=== PATIENT | male | born 1950 | race Caucasian/White ===

== ENCOUNTER 2018-11-26 09:58 | Emergency (ER) | payer MEDICARE ==
--- NOTE | 2018-11-26 10:52 | ED ---
Neck Pain - HPI Summary HPI Summary: Pt is a 68 y/o M presenting to the ED for left neck and shoulder pain. Pt states that on the morning of 11/26/18, pt lost his balance while getting out of bed. Pt continued to feel unsteady on his feet and later fell 5 more times since the initial loss of balance. Pt describes the loss of balance as if he stood up to soon. Pt admits no change in symptoms when sitting down. Pt has had pain from the left forehead for 3 weeks. Pt also reports changes in vision that he describes as fuzzy that began at the same time as the neck pain. Pt has taken ibuprofen which has alleviated these symptoms, but reports the symptoms were not controlled on 11/26/18 after taking ibuprofen. Pt denies dizziness, tinnitus, changes in speech, or weakness in the bilateral LE or bilateral UE. Pt states his BP was 165/90 on 11/26/18, but his BP is typically 130/70. Pt does not take medication for HTN. Pt takes Crestor for hypercholesterolemia which was increased to 200 mg 3 days ago. Pt denies a PMHx of atrial fibrillation or other cardiac problems. Pt has an eye appointment next week. - History of Current Complaint Chief Complaint: EDNeckComplaint Stated Complaint: PAIN IN NECK AND SHOULDERS/LOSING BALANCE PER PT Time Seen by Provider: 11/26/18 10:40 Hx Obtained From: Patient Onset/Duration Of Injury/Symptoms: Weeks - 3 weeks Timing: Lasting Weeks - 3 weeks Onset/Duration: Sudden Onset, Started weeks ago - 3 weeks, Still Present Severity Initially: Moderate Severity Currently: Moderate Pain Intensity: 4 Pain Scale Used: 0-10 Numeric Location: Discrete At: - Pain near back of head that radiates to the left neck and shoulder Alleviating Factors: OTC Meds - Ibuprofen, Other: - No change when sitting Associated Signs & Symptoms: Negative: Weakness - Allergies/Home Medications Allergies/Adverse Reactions: Allergies Allergy/AdvReac Type Severity Reaction Status Date / Time No Known Allergies Allergy Verified 11/26/18 10:05 PMH/Surg Hx/FS Hx/Imm Hx Previously Healthy: Yes Endocrine/Hematology History: Denies: Hx Anticoagulant Therapy, Hx Diabetes Cardiovascular History: Reports: Hx Hypercholesterolemia Denies: Hx Atrial Fibrillation, Hx Hypertension, Hx Pacemaker/ICD, Other Cardiovascular Problems/Disorders Respiratory History: Denies: Hx Asthma History: Reports: Hx Benign Prostatic Hyperplasia - Takes proscar Sensory History: Reports: Hx Contacts or Glasses Denies: Hx Legally Blind, Hx Deafness, Hx Hearing Aid Opthamlomology History: Reports: Hx Contacts or Glasses Denies: Hx Legally Blind EENT History: Denies: Hx Deafness Psychiatric History: Denies: Hx Panic Disorder - Surgical History Surgical History: Yes Surgery Procedure, Year, and Place: L inguinal hernia repair 2010, [facility], 2 roxanne holes placed at age 10 r/t head injury,[facility] Infectious Disease History: No Infectious Disease History: Denies: Traveled Outside the [place] in Last 30 Days - Family History Known Family History: Negative: Hypertension, Diabetes - Social History Occupation: Retired Alcohol Use: None Hx Substance Use: No Substance Use Type: Reports: None Hx Tobacco Use: No Smoking Status (MU): Never Smoked Tobacco Review of Systems Positive: Other - Positive changes in vision described as "fuzzy" Positive: Other - Negative tinnitus Positive: Myalgia - Pain near back of head that radiates to the left neck and shoulder Neurological: Other - Positive loss of balance Negative: Weakness - Bilateral LE or bilateral UE, Slurred Speech All Other Systems Reviewed And Are Negative: Yes Physical Exam - Summary Physical Exam Summary: Appearance: The patient is well-nourished in no acute distress and in no acute pain. Skin: The skin is warm and dry, and skin color reflects adequate perfusion. HEENT: The head is normocephalic and atraumatic. The pupils are equal and reactive. The conjunctivae are clear and without drainage. Nares are patent and without drainage. Mouth reveals moist mucous membranes, and the throat is without erythema and exudate. The external ears are intact. The ear canals are patent and without drainage. The tympanic membranes are intact. Neck: The neck is supple with full range of motion and non-tender. There are no carotid bruits. There is no neck vein distension. Respiratory: Chest is non-tender. Lungs are clear to auscultation and breath sounds are symmetrical and equal. Cardiovascular: Heart is regular rate and rhythm. There is no murmur or rub auscultated. There is no peripheral edema and pulses are symmetrical and equal. Abdomen: The abdomen is soft and non-tender. There are normal bowel sounds heard in all four quadrants and there is no organomegaly palpated. Musculoskeletal: There is no back tenderness noted. Extremities are non-tender with full range of motion. There is good capillary refill. There is no peripheral edema or calf tenderness elicited. Neurological: Patient is alert and oriented to person, place and time. The patient has symmetrical motor strength in all four extremities. Cranial nerves are grossly intact. Deep tendon reflexes are symmetrical and equal in all four extremities. Psychiatric: The patient has an appropriate affect and does not exhibit any anxiety or depression. Triage Information Reviewed: Yes Vital Signs On Initial Exam: Initial Vitals Temp Pulse Resp BP Pulse Ox 98.3 F 53 18 159/92 96 11/26/18 09:59 11/26/18 09:59 11/26/18 09:59 11/26/18 09:59 11/26/18 09:59 Vital Signs Reviewed: Yes - Annalise Coma Scale Best Eye Response: 4 - Spontaneous Best Motor Response: 6 - Obeys Commands Best Verbal Response: 5 - Oriented Coma Scale Total: 15 Procedures - Sedation Patient Received Moderate/Deep Sedation with Procedure: No Diagnostics - Vital Signs Vital Signs Temp Pulse Resp BP Pulse Ox 11/26/18 09:59 98.3 F 53 18 159/92 96 - Laboratory Result Diagrams: 11/26/18 11:41 Lab Statement: Any lab studies that have been ordered have been reviewed, and results considered in the medical decision making process. - CT Brain CT CT Interpretation Completed By: Radiologist Summary of CT Findings: Brain CT IMPRESSION: 1. No acute intracranial abnormality by CT (MRI is more sensitive for acute infarct). 2. Mild chronic small vessel ischemic disease is likely. Reviewed by ED physician. Head CT CT Interpretation Completed By: Radiologist Summary of CT Findings: Head CTA IMPRESSION: 1. No acute occlusive disease, significant stenosis (by NASCET criteria) or aneurysm in. the head. 2. No acute occlusive disease or significant stenosis in the neck (by NASCET criteria) . 3. 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 4. Atherosclerotic disease as above. Reviewed by ED physician. Neck Course/Dx - Course Course Of Treatment: Mr. Lima presented with a 2 to three-week history of a left sided occipital pain accompanied by some intermittent blurred vision. This morning he had 5 episodes of losing his balance and suddenly falling over. I was concerned that he might have a vertebral dissection with an intermittent flap and a code urrutia was called. CTA was negative and Dr. Orellana consulted on him. He felt that the patient was having radicular issues from compression on the posterior columns. He recommended admission to the patient but the patient was unwilling. We tried to get an MRI scan but he apparently has a BB in his tongue. I spoke again with the neurologist and he recommended follow-up in the office. - Diagnoses Provider Diagnoses: Cervical radiculopathy During the Visit The Following Alert/Code Occurred: Code Taylor - Assessed the pt at 10:46 Called at 10:49 Discharge ED - Sign-Out/Discharge Documenting (check all that apply): Patient Departure - Discharge - Discharge Plan Condition: Stable Disposition: HOME Patient Education Materials: Cervical Radiculopathy (ED) Referrals: Malachi Marcial MD [Primary Care Provider] - Additional Instructions: Follow up with Dr. Orellana in 2-3 weeks. Return to the ED for any new or worsening symptoms. - Billing Disposition and Condition Condition: STABLE Disposition: Home - Attestation Statements Document Initiated by Scribe: Yes Documenting Scribe: Ester oJhnston Provider For Whom Scribe is Documenting (Include Credential): Geo Small MD Scribe Attestation: I, Ester Johnston, scribed for Geo Small MD on 11/26/18 at 1940. Scribe Documentation Reviewed: Yes Provider Attestation: The documentation as recorded by the Ester phillip accurately reflects the service I personally performed and the decisions made by me, Geo Small MD Status of Scribe Document: Viewed NIH Scale - NIH Scale Level of Consciousness: Alert/Keenly Responsive Ask Patient the Month and His/Her Age: Both Correct Ask Pt to Open/Close Eyes and Credentialing Specialist/Release Non-Paretic Hand: Both Correctly Best Gaze (Only Horizontal Eye Movement): Normal Visual Field Testing: No Visual Loss Facial Paresis-Pt to Smile & Close Eyes or Grimace Symmetry: Normal/Symmetrical Motor Function - Right Arm: No Drift-Holds 10 Seconds Motor Function - Left Arm: No Drift-Holds 10 Seconds Motor Function - Right Leg: No Drift-Holds 10 Seconds Motor Function - Left Leg: No Drift-Holds 10 Seconds Limb Ataxia-Must be out of Proportion to Weakness Present: Absent Sensory (Use Pinprick to Test Arms/Legs/Trunk/Face): Normal Best Language (Describe Picture, Name Items): No Aphasia Dysarthria (Read Several Words): Normal Extinction and Inattention: No Abnormality Total Score: 0 NIH Stroke Scale Comment: 0
[2018-11-26] MEDS ORDERED: Iodixanol* (CONTRAST) 320 MG/ML 100 ML SDV IV ONE (11:20)
[2018-11-26 12:00] LABS: ABS Basophils 0.1 10^3/ul (0-0.2); ABS Eosinophils 0.3 10^3/ul (0-0.6); ABS Lymphocytes 2.1 10^3/ul (1.0-4.8); ABS Monocytes 0.7 10^3/ul (0-0.8); ABS Neutrophils 4.1 10^3/ul (1.5-7.7); Eosinophil % 3.8 %; Hematocrit 40 % (42-52); Hemoglobin 13.2 g/dL (14.0-18.0); Lymphocyte % 28.7 %; Mean Corpuscular HGB Conc 33 g/dL (31-36); Mean Corpuscular Hemoglobin 31 pg (27-31); Mean Corpuscular Volume 94 fL (80-94); Mean Platelet Volume 7.2 fL (7.4-10.4); Platelet Count 274 10^3/uL (150-450); Red Blood Count 4.22 10^6 /uL (4.18-5.48); Red Cell Distribution Width 13 % (10-15); White Blood Count 7.2 10^3/uL (3.5-10.8)
--- NOTE | 2018-11-26 12:47 | CONS ---
NEUROLOGY CONSULTATION NOTE: DATE OF CONSULT: 11/26/18 CONSULTING PROVIDER: Dr. Geo Small. REASON FOR CONSULT: Neck pain. CHIEF COMPLAINT: Neck pain and stumbling when walking. HISTORY OF PRESENT ILLNESS: Mr. Cecil Lima is a 68-year-old man with history of benign prostatic hypertrophy and dyslipidemia, who presented to [facility] with a 3-week history of left-sided neck pain and woke up this morning with gait instability. The patient stated that the neck pain started 3 weeks ago after a long session of wood chopping. The pain is constant , relieved with NSAIDs, and is currently 3/10 in severity. The pain is described as sharp and ache-like, mostly localized to the lateral cervical region. The pain is exacerbated when looking towards the left. The patient was last known well at 10:30 last night. He woke up at 6:30 a.m. today and had trouble walking. He leaned forward and stumbled 5 times. Two of the times occurred before the lights were on in his bedroom. He denied any falls. He denied any new visual disturbance, although he has had some change in his vision over the last few weeks. He has scheduled an appointment with his clinical trials assistant recently. He has not had that appointment yet. The patient denied any focal weakness or paresthesias. He denied any slurred speech. He denied any swallowing impairment. The patient has a history of chronic low back pain. A CT head was obtained and showed no evidence of acute intracranial abnormality. There is a small calcified lesion in the right cerebellum with no surrounding edema. CTA head and neck showed no evidence of vertebral artery dissection, carotid dissection or stenosis, but there is mild spinal canal narrowing at C4-C5, C5- C6. There is multilevel neural foraminal narrowing on the left side. NIH Stroke Scale is 0. PAST MEDICAL HISTORY: Chronic low back pain, benign prostatic hypertrophy. MEDICATIONS: 1. Rosuvastatin 10 mg p.o. daily. 2. Finasteride 5 mg p.o. daily. 3. Aspirin 325 mg p.o. daily. 4. Tamsulosin 0.4 mg p.o. daily. ALLERGIES: No known drug allergies. FAMILY HISTORY: His father at age 39 due to a heart attack. There is no family history of stroke or seizures. SOCIAL HISTORY: The patient drinks 2 glasses of wine daily. 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 He denied any tobacco use. He denied any recreational drug use. He lives with his spouse. He chops wood for living. REVIEW OF SYSTEMS: A 12-point review of systems was obtained and otherwise negative except for what was mentioned in the HPI. Specifically, the patient denied any chest pain, shortness of breath, or palpitations. PHYSICAL EXAM: Vitals: Temperature of 98.3, pulse of 48, respiratory rate of 20, oxygen saturation of 99%, blood pressure of 154/84. General: Well- nourished, well- developed, well-built man, in no acute distress. Head: Atraumatic, normocephalic without any obvious abnormality. Spurling sign is positive on the left side with slight radiation of pain to the left shoulder. No nuchal rigidity. No carotid bruits. Cardiovascular: Regular rate and rhythm with normal S1, S2. Pulmonary: Clear to auscultation bilaterally with no wheezing or rhonchi. Extremities: Normal range of motion with no cyanosis. No hammertoes or high arches. Skin: No skin lesions or lacerations. Psych: His affect is broad and normal mood. Easy to establish rapport. Neurological Examination: Mental Status: Awake, alert, and oriented to person, place, time , and general circumstances. Speech and language including repetition, comprehension, fluency, and naming were assessed and found to be normal. Cranial Nerves: Pupils are equal, round, and reactive to light. Extraocular muscles are intact. There is normal sensation to the face bilaterally. No facial asymmetry. Tongue is symmetric and midline with no atrophy or fasciculation. Motor Examination: 5/5 strength in the upper and lower extremities. Normal tone throughout. Sensation is intact to light touch, pinprick and temperature sensation throughout except for reduced temperature sensation on the left arm. Romberg sign is negative. Vibration is reduced at the toes bilaterally, 10 seconds on the right and 11 seconds on the left. Proprioception is intact at the great toes. Coordination: Normal finger-to- nose and [id number] testing bilaterally. Gait: Wide based, normal stance. No ataxia. Reflexes 1+ in the biceps, triceps, and brachioradialis bilaterally ; 2+ at the knees, and 0 at the ankles bilaterally. Visual acuity testing, 20/ 40 on the right and 20/30 on the left. LABS, IMAGING, AND OTHER DIAGNOSTIC TESTING: We are still awaiting on the labs and the CTA was not read yet. ASSESSMENT AND RECOMMENDATIONS: Mr. Cecil Lima is a 68-year-old man with history of dyslipidemia and benign prostatic hypertrophy, who presented with: 1. New-onset gait instability in the setting of a 3-week history of left-sided neck pain. I suspect the patient has underlying cervical spondylosis with radiculopathy. I do not suspect he had a stroke. There is no evidence of vertebral artery dissection on the CTA, but we are awaiting for a final read. The fact that he has been chopping wood for the last few weeks may have exacerbated any underlying degenerative disk disease in the spine. Recommendations: I recommend obtaining an MRI of the cervical spine without contrast for further evaluation. The patient declined admission to the hospital and would prefer to proceed with further workup as an outpatient. Please check orthostatic vitals. I recommend NSAIDs and Tizanidine 2-4 mg a night for his neck pain. 2. Concern for underlying neuropathy. The patient had reduced vibration at the great toes today with absent reflexes at the ankles. The patient's underlying neuropathy could be related vitamin B1 deficiency or underlying prediabetes or diabetic state. I have ordered vitamin B1, B12, TSH, and hemoglobin A1c level to check for any reversible metabolic causes of neuropathy. This could also be contributing to his gait imbalance. 3. Nonspecific blurry vision of few weeks' duration. The patient will be followed up by Ophthalmology. He had no visual field cut or visual loss in the specific eye today. Further discharge planning will be deferred to our ER team. Please note that the patient did not have a stroke. He is not a candidate for IV tPA or mechanical thrombectomy due to the low suspicion for stroke. His gait abnormality seemed to be improving while he was in the ED. We will arrange for a follow-up appointment with neurology in 2-4 weeks. Addendum: the patient was unable to undergo an MRI due to some sort of metal in his tongue from a previous injury (according to the locate technician Nila). He would need to undergo further outpatient evaluation with an EMG/NCS and if he develops weakness or impairment in his bowel/bladder functions, then may need CT myelograms. For now, we will set up a follow-up appointment with [facility] neurology to see if his symptoms reoccur or he continues to have neck pain. [id number]/[facility] #: [id number] CARLOS A
[2018-11-26 12:57] LABS: TSH (Thyroid Stimulating Horm) 1.32 mcIU/mL (0.34-5.60)
[2018-11-26 14:28] VITALS: BP 142/84
== END 2018-11-26 14:15 | disposition home or self-care (01) ==
LOC: ED 09:58
DX: M54.12 Radiculopathy, cervical region (principal); H53.8 Other visual disturbances; I67.2 Cerebral atherosclerosis; E78.00 Pure hypercholesterolemia, unspecified; N40.0 Benign prostatic hyperplasia without lower urinary tract symptoms; Z79.82 Long term (current) use of aspirin; Z79.899 Other long term (current) drug therapy
CPT/HCPCS: 36415; 70450; 70496; 70498; 82607; 84425; 84443; 84484; 85025; 99284; Q9967